=== PATIENT | male | born 1960 | race Caucasian/White ===

== ENCOUNTER 2018-06-15 14:51 | Emergency (ER) | payer BC ==
[~2018-06-15] VITALS: Ht 172.7 cm; Wt 81.6 kg
[~2018-06-15 14:51] MED LIST: AMOXICILLIN500 MG PO; ANUSOL-HC25 MG R; ANUSOL-HC25 MG RC; ASPIRIN325 MG PO; ASPIRIN81 M1 PO; ATIVAN0.5 MG PO; BREO ELLIPTA 21 EACH IH; BRILINTA90 M1 PO; CIPROFLOXACIN500 MG PO; CYCLOBENZAPRINE10 MG PO; D-1000 185 MG-11 TAB PO; FISH OIL500 M2 PO; FLONASE ALLERG9.9 ML NS; HYDROCODONE BIT1 T11 PO; KEFLEX500 MG PO; LEVAQUIN750 M1 PO; LIPITOR80 MG PO; LISINOPRIL10 M1 PO; LISINOPRIL40 MG PO; LOPRESSOR25 MG PO; MUCINEX ER600 MG PO; NAPROSYN500 MG PO; NKHM; PRAVASTATIN SOD40 MG PO; PREDNISONE10 MG PO; PREDNISONE20 MG PO; PREVACID30 M3 PO; PROVENTIL0.09 MG/A1 INH; SYMBICORT1 AE1 INH; TESSALON PERLE100 MG PO; TOBRADEX 0.1%-0.5 ML OPH; VENTOLIN H0.09 MG/AC INH; ZANTAC 7575 MG PO; ZITHROMAX TRI-500 M1 PO; ZITHROMAX Z PA250 MG PO; ZITHROMAX250 MG PO
[2018-06-15] MEDS ORDERED: MYCOLOG CREAM 115 GM T (15:03)
[2018-06-15] MEDS ORDERED: NYSTOP60 GM T (15:03)
== END 2018-06-15 15:10 | disposition home or self-care (01) ==
LOC: ED 14:51
DX: L25.8 Unspecified contact dermatitis due to other agents (principal); I11.0 Hypertensive heart disease with heart failure; I50.32 Chronic diastolic (congestive) heart failure; J44.9 Chronic obstructive pulmonary disease, unspecified; K21.9 Gastro-esophageal reflux disease without esophagitis; I25.2 Old myocardial infarction; F17.200 Nicotine dependence, unspecified, uncomplicated; Z88.6 Allergy status to analgesic agent; Z88.1 Allergy status to other antibiotic agents; Z79.899 Other long term (current) drug therapy; Z79.82 Long term (current) use of aspirin

== ENCOUNTER 2018-09-13 16:01 | Inpatient (IN) | payer BC ==
[~2018-09-13] VITALS: Ht 172.7 cm; Wt 85.4 kg
[2018-09-13 16:01] VITALS: BP 156/89
[~2018-09-13 16:01] MED LIST changes: +MYCOLOG CREAM 115 GM T; +NYSTOP60 GM T
[2018-09-13 16:28] LABS: BASO # 0.1 10*3/uL (0.0-0.1); BASO % 0.5 % (0.0-1.0); EOS # 0.2 10*3/uL (0.0-0.4); EOS % 1.2 % (1.0-4.0); HEMATOCRIT 46.3 % (42.0-52.0); HEMOGLOBIN 15.4 g/dl (14.0-18.0); LYMPH # 2.2 10*3/uL (1.3-4.4); LYMPH % 17.3 % (27.0-41.0); MEAN CELL VOLUME 95.5 fl (80.0-94.0); MEAN CORPUSCULAR HGB 31.8 pg (27.0-31.0); MEAN CORPUSCULAR HGB CONC 33.3 g/dl (33.0-37.0); MEAN PLATELET VOLUME 10.2 fl (9.6-12.3); MONO # 0.9 10*3/uL (0.1-1.0); MONO % 7.6 % (3.0-9.0); NEUT # 9.1 10*3/uL (2.3-7.9); NEUT % 73.2 % (47.0-73.0); PLATELET COUNT AUTOMATED 246 10*3/uL (130-400); RED BLOOD COUNT 4.85 10*6/uL (4.50-5.90); RED CELL DISTRI WIDTH 13.1 % (0-14.5); WHITE BLOOD COUNT 12.5 10*3/uL (4.8-10.8)
[2018-09-13 16:44] LABS: INTERNATIONAL NORM RATIO 0.9 (2.0-3.5)
[2018-09-13 16:45] LABS: ALBUMIN 3.8 gm/dl (3.1-4.5); ALKALINE PHOSPHATASE 94 U/L (45-117); BUN 14 mg/dl (7-24); CHLORIDE 104 mmol/L (98-107); CREATININE 1.05 mg/dL (0.70-1.30); LIPASE 93 U/L (73-393); POTASSIUM 4.3 mmol/L (3.5-5.1); SGOT/AST 20 IU/L (3-35); SGPT/ALT 34 U/L (12-78); SODIUM 138 mmol/L (136-145); TOTAL PROTEIN 7.9 gm/dL (6.4-8.2)
[2018-09-13] MEDS ORDERED: LISINOPRIL20 MG PO (16:48)
[2018-09-13 16:49] LABS: BILIRUBIN NEGATIVE (NEGATIVE); BLOOD NEGATIVE (NEGATIVE); CLARITY CLEAR (CLEAR); COLOR YELLOW (YELLOW); GLUCOSE NEGATIVE (NEGATIVE); KETONE NEGATIVE (NEGATIVE); LEUKO ESTERASE NEGATIVE (NEGATIVE); NITRITE NEGATIVE (NEGATIVE); PH 5.5 (5.0-9.0); UROBILINOGEN 0.2 E.U./dl (0.2-1.0)
[2018-09-13] MEDS ORDERED: OMEPRAZOLE40 MG PO (16:49)
[2018-09-13] MEDS ORDERED: LIPITOR40 MG PO (16:50)
[2018-09-13] MEDS ORDERED: CLOPIDOGREL75 MG PO (16:50)
[2018-09-13 17:08] LABS: BACTERIA 1+; FINE GRANULAR CAST 0-2
--- NOTE | 2018-09-13 17:18 | NUR ---
THE MORPHINE DID HELP WITH THE PATIENTS PAIN
[2018-09-13 18:22] VITALS: BP 166/92
--- NOTE | 2018-09-13 18:48 | NUR ---
Time: 1847 A 57 year old FEMALE admitted to 5E under services of JUDIE COOPER DO. Pt. arrived via stretcher from ER. Chief complaint: ABDOMINAL PAIN. ALETA CROOK
[2018-09-13] MEDS ORDERED: ASPIR LOW81 MG PO (19:01)
[2018-09-13] MEDS ORDERED: FISH OIL 1,0001 EAC5 PO (19:01)
[2018-09-13 19:02] VITALS: BP 155/73
--- NOTE | 2018-09-13 19:37 | NUR ---
NOTIFIED OF PATIENT'S PAST MEDICAL HISTORY INCLUDING BOWEL OBSTRUCTION WITH ILEOSTOMY & REVERSAL AT [facility]. ALSO AWARE OF CT ABD/PELVIS RESULTS. ALSO MADE AWARE OF PATIENT'S REQUEST FOR NICOTINE PATCH. PATIENT IS A PACK TO TWO PACKS PER DAY SMOKER. NEW ORDERS TO FOLLOW PER .
--- NOTE | 2018-09-13 20:20 | NUR ---
NOTIFIED OF CONSULT. NEW ORDERS RECEIVED FOR NG TUBE TO LOW/INTERMITTENT SUCTION, FLAT UPRIGHT ABDOMINAL XRAY 09/14 IN AM, AND TO OBTAIN MEDICAL RECORDS FROM [facility]. PATIENT STATES HE WAS IN [facility] ON/OFF FROM SEPTEMBER 2016 TO APRIL 2017. STATES HE HAD AN ILEOSTOMY WITH REVERSAL AND MULTIPLE HERNIA REPAIRS.
--- NOTE | 2018-09-13 21:03 | NUR ---
3 ATT[address]PTS BY MULTIPLE RNs TO PLACE NG TUBE WERE UNSUCCESSFUL. NOTIFIED. INSTRUCTED TO CALL .
--- NOTE | 2018-09-13 21:04 | NUR ---
NOTIFIED THAT NG TUBE PLACEMENT WAS UNSUCCESSFUL. STATES THAT IT IS OKAY TO LEAVE NG TUBE OUT FOR NOW. INSTRUCTED TO CALL IF PATIENT BECOMES MORE DISTENDED OR BEGINS TO DRY HEAVE. STATES HE WILL SEE PATIENT IN AM.
--- NOTE | 2018-09-13 21:30 | NUR ---
NOTIFIED OF PATIENT'S C/O PAIN IN ABD. DISCUSSED ORDERED PO MEDS AND QUESTIONED WHETHER TO GIVE THESE SINCE WANTS PATIENT TO BE NPO. WILL REVIEW CHART AND PLACE ORDERS NEEDED.
--- NOTE | 2018-09-13 22:45 | NUR ---
AND AT BEDSIDE. INSTRUCTED TO ORDER 2MG IV ATIVAN X1 DOSE AND PO LIDOCAINE VISCOUS. THIS IS TO HELP PATIENT RELAX SO THAT NG TUBE CAN BE PLACED. IV ATIVAN GIVEN SLOWLY AT THIS TIME PER ORDER. WILL MONITOR EFFECTIVENESS. CALL LIGHT LEFT IN REACH.
--- NOTE | 2018-09-13 23:09 | NUR ---
& AT BEDSIDE TO PLACE NG TUBE. NG TUBE PLACED. CXR ORDERED. SUCTION SET UP AT BEDSIDE. AWAITING VERIFICATION OF PLACEMENT.
[2018-09-14] VITALS: BP 131/91
--- NOTE | 2018-09-14 00:18 | NUR ---
CALLED. NG TUBE IN CORRECT POSITION FROM CXR IMAGE. OKAY TO USE.
--- NOTE | 2018-09-14 03:22 | NUR ---
NOTIFIED THAT SUCTION NO LONGER WORKING ON LOW/INTERMITTENT SETTING. INSTRUCTED TO CHANGE ROOMS IF SUCTION IN ROOM NOT WORKING. RN ABLE TO SET UP NEW UNIT & AFTER MULTIPLE ATTEMPTS, LOW-INTERMITTENT SUCTION SUCCESSFUL. WILL MONITOR OUTPUT.
[2018-09-14 06:23] LABS: BASO # 0.1 10*3/uL (0.0-0.1); BASO % 0.6 % (0.0-1.0); EOS # 0.1 10*3/uL (0.0-0.4); EOS % 0.7 % (1.0-4.0); HEMATOCRIT 44.2 % (42.0-52.0); HEMOGLOBIN 14.7 g/dl (14.0-18.0); LYMPH # 2.3 10*3/uL (1.3-4.4); LYMPH % 21.4 % (27.0-41.0); MEAN CELL VOLUME 95.9 fl (80.0-94.0); MEAN CORPUSCULAR HGB 31.9 pg (27.0-31.0); MEAN CORPUSCULAR HGB CONC 33.3 g/dl (33.0-37.0); MEAN PLATELET VOLUME 9.8 fl (9.6-12.3); MONO % 9.6 % (3.0-9.0); NEUT # 7.1 10*3/uL (2.3-7.9); NEUT % 67.4 % (47.0-73.0); PLATELET COUNT AUTOMATED 211 10*3/uL (130-400); RED BLOOD COUNT 4.61 10*6/uL (4.50-5.90); RED CELL DISTRI WIDTH 13.2 % (0-14.5); WHITE BLOOD COUNT 10.6 10*3/uL (4.8-10.8)
[2018-09-14 06:37] LABS: BUN 13 mg/dl (7-24); CHLORIDE 105 mmol/L (98-107); CREATININE 1.01 mg/dL (0.70-1.30); PHOSPHOROUS 3.7 mg/dL (2.5-4.9); POTASSIUM 4.1 mmol/L (3.5-5.1); SODIUM 139 mmol/L (136-145)
[2018-09-14 08:00] VITALS: BP 154/91
--- NOTE | 2018-09-14 09:02 | NUR ---
C/O PAIN TO ABD OF 12/11. IV MORPHINE GIVEN AT THIS TIME. WILL CONT TO MONITOR. CALL LIGHT IN REACH.
--- NOTE | 2018-09-14 09:59 | NUR ---
MS EFF. WILL CONT TO MONITOR. CALL LIGHT IN REACH.
[2018-09-14 12:00] VITALS: BP 167/90
--- NOTE | 2018-09-14 13:47 | NUR ---
C/O PAIN TO ABD OF 03/13. IV MORPHINE GIVEN AT THIS TIME. WILL CONT TO MONITOR. CALL LIGHT IN REACH.
--- NOTE | 2018-09-14 14:45 | NUR ---
PT STATES LESSENING OF PAIN SINCE IV MS OF 08/11. WILL CONT TO MONITOR. CALL LIGHT IN REACH.
--- NOTE | 2018-09-14 15:41 | NUR ---
GAVE DULCOLAX SUPP PER DR ROSE REQUEST AT THIS TIME.
[2018-09-14 16:00] VITALS: BP 158/90
--- NOTE | 2018-09-14 17:30 | NUR ---
PT HAD A LARGE FORMED BM AT THIS TIME. HE STATED HE DOESN'T FEEL LIKE HE'S DONE YET AND WANTS TO REMAIN UNHOOKED FROM HIS NG SUCTION AND IVF UNTIL HE'S FINISHED. FAMILY AT BEDSIDE.
--- NOTE | 2018-09-14 18:21 | NUR ---
C/O PAIN OF 3-4/10 TO ABD AND A HEADACHE. IV MS GIVEN AT THIS TIME.
[2018-09-14 20:00] VITALS: BP 160/90
--- NOTE | 2018-09-14 22:55 | NUR ---
MORPHINE GIVEN FOR C/O ABD PAIN RATED 10/10. CALL LIGHT IN REACH. NG SUCTION GOING. IVF GOING.
--- NOTE | 2018-09-14 23:56 | NUR ---
SLEEPING. MORPHINE SEEMS TO BE EFFECTIVE. CALL LIGHT IN REACH.
[2018-09-15] VITALS: BP 161/84
--- NOTE | 2018-09-15 00:10 | NUR ---
NOTIFIED OF DARK URINE WITH HINT OF RED/BLOOD. SAID TO MONITOR. NO NEW ORDERS GIVEN.
--- NOTE | 2018-09-15 01:12 | NUR ---
24HR CHART CHECK COMPLETED.
--- NOTE | 2018-09-15 01:26 | NUR ---
PT URINATED AGAIN, THIS TIME URINE IS MORE BRIGHT RED IN COLOR. NOTIFIED . ORDERED TO HOLD LOVENOX IN AM. SEE MAR.
--- NOTE | 2018-09-15 03:28 | NUR ---
MORPHINE GIVEN FOR C/I ABD PAIN RATED 10/10. CALL LIGHT IN REACH. WILL MONITOR.
--- NOTE | 2018-09-15 05:31 | NUR ---
SLEEPING. CALL LIGHT IN REACH. MORPHINE SEEMS TO BE EFFECTIVE FOR COMPLAINTS.
[2018-09-15 05:47] VITALS: BP 99/58
[2018-09-15 06:13] LABS: BASO # 0.1 10*3/uL (0.0-0.1); BASO % 0.7 % (0.0-1.0); EOS # 0.2 10*3/uL (0.0-0.4); EOS % 2.3 % (1.0-4.0); HEMATOCRIT 41.7 % (42.0-52.0); HEMOGLOBIN 13.7 g/dl (14.0-18.0); LYMPH # 2.2 10*3/uL (1.3-4.4); MEAN CELL VOLUME 96.5 fl (80.0-94.0); MEAN CORPUSCULAR HGB 31.7 pg (27.0-31.0); MEAN CORPUSCULAR HGB CONC 32.9 g/dl (33.0-37.0); MONO # 0.9 10*3/uL (0.1-1.0); MONO % 9.9 % (3.0-9.0); NEUT # 5.5 10*3/uL (2.3-7.9); NEUT % 61.9 % (47.0-73.0); PLATELET COUNT AUTOMATED 196 10*3/uL (130-400); RED BLOOD COUNT 4.32 10*6/uL (4.50-5.90); RED CELL DISTRI WIDTH 13.1 % (0-14.5); WHITE BLOOD COUNT 8.8 10*3/uL (4.8-10.8)
[2018-09-15 06:34] LABS: BUN 15 mg/dl (7-24); CHLORIDE 109 mmol/L (98-107); CREATININE 0.95 mg/dL (0.70-1.30); POTASSIUM 3.9 mmol/L (3.5-5.1); SODIUM 142 mmol/L (136-145)
[2018-09-15 08:00] VITALS: BP 154/70
--- NOTE | 2018-09-15 08:03 | NUR ---
C/O PAIN OF 12/11 TO ABD BUT HE STATES HE WILL HOLD OFF FOR HIS PAIN MEDS.
--- NOTE | 2018-09-15 10:13 | NUR ---
SPOKE TO WENDY FRANCOIS REGARDING DISCOLORED URINE. SHE GAVE ME A NEW ORDER TO CHECK UA REFLEX TO UC
--- NOTE | 2018-09-15 10:55 | NUR ---
PT C/O HEADACHE OF 12/11. IV MORPHINE GIVEN AT THIS TIME DUE TO PATIENT CONTINUING TO BE NPO.
[2018-09-15 11:09] LABS: BILIRUBIN 1+ (NEGATIVE); BLOOD NEGATIVE (NEGATIVE); CLARITY SL CLOUDY (CLEAR); COLOR YELLOW (YELLOW); GLUCOSE NEGATIVE (NEGATIVE); KETONE 3+ (NEGATIVE); LEUKO ESTERASE TRACE (NEGATIVE); NITRITE NEGATIVE (NEGATIVE); PH 6.5 (5.0-9.0); SPECIFIC GRAVITY 1.015 (1.005-1.030)
[2018-09-15 11:23] LABS: BACTERIA TRACE
--- NOTE | 2018-09-15 11:55 | NUR ---
MORPHINE EFF FOR C/O HEADACHE. WILL CONT TO MONITOR. CALL LIGHT IN REACH.
[2018-09-15 12:00] VITALS: BP 164/72
--- NOTE | 2018-09-15 14:00 | NUR ---
PER DR ROSE REMOVE NG TUBE AND GIVE SIPS OF WATER AND ICE CHIPS. HE STATED HE SEEN THE RESULTS OF HER X-RAYS FROM THIS AM AND THAT HE WILL CALL LATER TO CHECK ON HIM.
--- NOTE | 2018-09-15 14:03 | NUR ---
REMOVED NG TUBE. PT TOLERATED WELL
--- NOTE | 2018-09-15 15:40 | NUR ---
PT REQUESTED DULCOLAX SUPP AND IT WAS GIVEN AT THIS TIME. WILL CONT TO MONITOR. CALL LIGHT IN REACH.
[2018-09-15 16:00] VITALS: BP 140/96
--- NOTE | 2018-09-15 16:41 | NUR ---
SUPPOSITORY EFF FOR VERY LARGE HARD BM PER PT. WILL CONT TO MONITOR.
--- NOTE | 2018-09-15 16:59 | NUR ---
PER DR ROSE PT MAY HAVE CLEAR LIQUID DIET
[2018-09-15 20:00] VITALS: BP 176/84
--- NOTE | 2018-09-15 21:18 | NUR ---
PATIENT REQUESTING MEDICATION FOR CONSTIPATION. DULCOLAX ADMINISTERED PRESCRIBED. WILL MONITOR FOR EFFECTIVENESS.
[2018-09-16] VITALS: BP 154/81
--- NOTE | 2018-09-16 01:03 | NUR ---
24 HR chart check completed.
[2018-09-16 06:57] LABS: ALBUMIN 3.1 gm/dl (3.1-4.5); ALKALINE PHOSPHATASE 82 U/L (45-117); BUN 11 mg/dl (7-24); CHLORIDE 105 mmol/L (98-107); CREATININE 0.87 mg/dL (0.70-1.30); PHOSPHOROUS 2.6 mg/dL (2.5-4.9); POTASSIUM 4.2 mmol/L (3.5-5.1); SGOT/AST 19 IU/L (3-35); SGPT/ALT 23 U/L (12-78); SODIUM 137 mmol/L (136-145); TOTAL PROTEIN 6.8 gm/dL (6.4-8.2)
[2018-09-16 08:00] VITALS: BP 154/73
[2018-09-16 12:00] VITALS: BP 142/78
--- NOTE | 2018-09-16 12:48 | NUR ---
Returns Clerk in to talk to patient. Patient states lives at HOME with . There are FEW steps in the home. Physician: [facility] Pharmacy: [facility] Home health services: NONE Patient's level of ADLs: INDEPENDENT Patient has working utilities: YES DME: [facility] Follow-up physician's appointment after d/c: WILL BE MADE BY HOSPITALIST NURSE DIRECTOR ON DISCHARGE Does patient want to access PORTAL?: NO Discharge plan PT STATES HE LIVES AT HOME WITH AND IS INDEPENDENT IN HIS CARE DENIES ANY NEEDS AT HOME ON DISCHARGE. WILL CONTINUE TO FOLLOW. WILL HAVE A RIDE HOME PER PT.. SANTANA DOMINGUEZ
[2018-09-16] MEDS ORDERED: CLEOCIN T60 ML T (14:55)
--- NOTE | 2018-09-16 15:35 | NUR ---
Discharge instructions reviewed with patient/family. Patient receptive and verbalizes understanding. Follow-up care arranged. Written instructions given to patient/family. SAUNDRA PA
== END 2018-09-16 15:35 | disposition home or self-care (01) | DRG 389 ==
LOC: ED 16:01 → EDHOLD 18:06 → 5E 18:06
PROVIDERS: Emergency Medicine; Registered Nurse; Student in an Organized Health Care Education/Training Program; ADMIT Internal Medicine
PROC: 0D9670Z Drainage of Stomach with Drainage Device, Via Natural or Artificial Opening (ICD-10-PCS; principal; 2018-09-13)
DX: K56.600 Partial intestinal obstruction, unspecified as to cause (principal); I50.32 Chronic diastolic (congestive) heart failure; K52.9 Noninfective gastroenteritis and colitis, unspecified; I11.0 Hypertensive heart disease with heart failure; J44.9 Chronic obstructive pulmonary disease, unspecified; F17.210 Nicotine dependence, cigarettes, uncomplicated; L73.2 Hidradenitis suppurativa; K21.9 Gastro-esophageal reflux disease without esophagitis; E78.5 Hyperlipidemia, unspecified; L73.9 Follicular disorder, unspecified; Z71.6 Tobacco abuse counseling; Z90.49 Acquired absence of other specified parts of digestive tract; Z88.1 Allergy status to other antibiotic agents; Z88.8 Allergy status to other drugs, medicaments and biological substances; I25.2 Old myocardial infarction; Z87.01 Personal history of pneumonia (recurrent); Z95.5 Presence of coronary angioplasty implant and graft; Z82.49 Family history of ischemic heart disease and other diseases of the circulatory system; Z81.8 Family history of other mental and behavioral disorders; Z80.9 Family history of malignant neoplasm, unspecified; Z79.82 Long term (current) use of aspirin; Z79.899 Other long term (current) drug therapy

== ENCOUNTER 2018-12-31 16:46 | Emergency (ER) | payer BC ==
[~2018-12-31] VITALS: Ht 172.7 cm; Wt 81.6 kg
--- NOTE | ~2018-12-31 | EKG ---
[place], [place] ELECTROCARDIOGRAM REPORT NAME: ALFREDO HAM UNIT #: [id number] ROOM: DOCTOR: EPIPHANY DRAFT REPORT BIRTHDATE: [birth year] [facility] Test Date: 2018-12-31 Test Time: 17:25:11 Pat Name: ALFREDO HAM Department: Room: Gender: [employer]: Lyla Cho : 1960 Requested By: SOLA SPRAGUE Order Number: [id number] Reading MD: Sami Galvan MD Measurements Intervals [place] Rate: 60 P: 54 NE: 150 QRS: 21 QRSD: 91 T: 13 QT: 382 QTc: 382 Interpretive Statements Sinus rhythm Probable left atrial enlargement No previous ECG available for comparison Electronically Signed On 01-01-2019 14:09:13 PDT by Sami Galvan MD CM:EKGRPT:ELECTROCARDIOGRAM REPORT [id number] SOLA SPRAGUE EPIPHANY DRAFT REPORT SOLA SPRAGUE
[~2018-12-31 16:46] MED LIST changes: +ASPIR LOW81 MG PO; +CLEOCIN T60 ML T; +CLOPIDOGREL75 MG PO; +FISH OIL 1,0001 EAC5 PO; +LIPITOR40 MG PO; +LISINOPRIL20 MG PO; +OMEPRAZOLE40 MG PO
[2018-12-31 17:27] LABS: BASO # 0.1 10*3/uL (0.0-0.1); BASO % 0.8 % (0.0-1.0); EOS # 0.2 10*3/uL (0.0-0.4); EOS % 2.5 % (1.0-4.0); HEMATOCRIT 41.7 % (42.0-52.0); LYMPH # 3.4 10*3/uL (1.3-4.4); LYMPH % 35.3 % (27.0-41.0); MEAN CORPUSCULAR HGB 32.6 pg (27.0-31.0); MEAN CORPUSCULAR HGB CONC 33.6 g/dl (33.0-37.0); MEAN PLATELET VOLUME 10.2 fl (9.6-12.3); MONO % 10.4 % (3.0-9.0); NEUT # 4.8 10*3/uL (2.3-7.9); NEUT % 50.7 % (47.0-73.0); PLATELET COUNT AUTOMATED 208 10*3/uL (130-400); WHITE BLOOD COUNT 9.6 10*3/uL (4.8-10.8)
[2018-12-31 17:45] LABS: ALBUMIN 3.4 gm/dl (3.1-4.5); ALKALINE PHOSPHATASE 75 U/L (45-117); BUN 12 mg/dl (7-24); CHLORIDE 107 mmol/L (98-107); CREATININE 1.52 mg/dL (0.70-1.30); POTASSIUM 3.7 mmol/L (3.5-5.1); SGOT/AST 14 IU/L (3-35); SGPT/ALT 25 U/L (12-78); SODIUM 138 mmol/L (136-145); TOTAL PROTEIN 6.7 gm/dL (6.4-8.2)
[2018-12-31 18:04] LABS: TROPONIN I < 0.015 ng/ml (<0.045)
[2018-12-31] MEDS ORDERED: VIBRAMYCIN100 MG PO (18:31)
== END 2018-12-31 19:18 | disposition home or self-care (01) ==
LOC: ED 16:46
PROVIDERS: Nurse Practitioner Family
DX: R53.83 Other fatigue (principal); R53.1 Weakness; R52 Pain, unspecified; I25.2 Old myocardial infarction; F17.200 Nicotine dependence, unspecified, uncomplicated; Z88.1 Allergy status to other antibiotic agents; Z88.6 Allergy status to analgesic agent; Z79.2 Long term (current) use of antibiotics; Z79.82 Long term (current) use of aspirin; Z79.899 Other long term (current) drug therapy

== ENCOUNTER 2019-06-06 19:03 | Emergency (ER) | payer BC ==
[~2019-06-06] VITALS: Ht 170.1 cm; Wt 90.3 kg
[~2019-06-06 19:03] MED LIST changes: +VIBRAMYCIN100 MG PO
== END 2019-06-06 20:55 | disposition left against medical advice (07) ==
LOC: ED 19:03
DX: R51 Headache (principal); R05 Cough; J02.9 Acute pharyngitis, unspecified; Z53.21 Procedure and treatment not carried out due to patient leaving prior to being seen by health care provider

== ENCOUNTER → 2020-05-26 | Outpatient (CLI) | payer BC | END | disposition home or self-care (01) | LOC: COVID19 14:57 | PROVIDERS: ATTEND Internal Medicine | DX: Z20.828 Contact with and (suspected) exposure to other viral communicable diseases (principal) ==

== ENCOUNTER 2020-07-28 14:24 | Observation (INO) | payer BC ==
[2020-07-28] VITALS (9 sets, daily range): BP systolic 105–154; BP diastolic 49–92
[~2020-07-28] VITALS: Ht 170.2 cm; Wt 87.5 kg
[2020-07-28 14:36] LABS: BASO # 0.1 10*3/uL (0.0-0.1); BASO % 0.8 % (0.0-1.0); EOS # 0.2 10*3/uL (0.0-0.4); EOS % 2.2 % (1.0-4.0); LYMPH # 2.8 10*3/uL (1.3-4.4); LYMPH % 26.8 % (27.0-41.0); MEAN CELL VOLUME 96.6 fl (80.0-94.0); MEAN CORPUSCULAR HGB 32.8 pg (27.0-31.0); MEAN PLATELET VOLUME 9.8 fl (9.6-12.3); MONO % 9.6 % (3.0-9.0); NEUT # 6.2 10*3/uL (2.3-7.9); NEUT % 60.2 % (47.0-73.0); PLATELET COUNT AUTOMATED 256 10*3/uL (130-400); RED BLOOD COUNT 4.97 10*6/uL (4.50-5.90); RED CELL DISTRI WIDTH 12.8 % (0-14.5); WHITE BLOOD COUNT 10.3 10*3/uL (4.8-10.8)
[2020-07-28 14:47] LABS: ACT PARTIAL THROMBO TIME 27.1 SECONDS (20.0-32.1)
[2020-07-28 15:00] LABS: ALBUMIN 3.7 gm/dl (3.1-4.5); ALKALINE PHOSPHATASE 88 U/L (45-117); BUN 14 mg/dl (7-24); CHLORIDE 108 mmol/L (98-107); CREATININE 1.29 mg/dL (0.70-1.30); POTASSIUM 3.8 mmol/L (3.5-5.1); SGOT/AST 19 IU/L (3-35); SGPT/ALT 32 U/L (12-78); SODIUM 138 mmol/L (136-145); TOTAL PROTEIN 7.7 gm/dL (6.4-8.2)
[2020-07-28 15:01] LABS: TROPONIN I < 0.015 ng/ml (<0.045)
[2020-07-29] VITALS: BP 149/84
[2020-07-29 06:43] LABS: BASO # 0.1 10*3/uL (0.0-0.1); BASO % 0.8 % (0.0-1.0); EOS # 0.3 10*3/uL (0.0-0.4); EOS % 3.8 % (1.0-4.0); HEMATOCRIT 45.8 % (42.0-52.0); LYMPH # 3.1 10*3/uL (1.3-4.4); MEAN CELL VOLUME 97.7 fl (80.0-94.0); MEAN CORPUSCULAR HGB CONC 33.8 g/dl (33.0-37.0); MEAN PLATELET VOLUME 10.3 fl (9.6-12.3); MONO # 0.9 10*3/uL (0.1-1.0); MONO % 10.6 % (3.0-9.0); NEUT # 4.2 10*3/uL (2.3-7.9); NEUT % 48.3 % (47.0-73.0); PLATELET COUNT AUTOMATED 248 10*3/uL (130-400); RED BLOOD COUNT 4.69 10*6/uL (4.50-5.90); RED CELL DISTRI WIDTH 13.2 % (0-14.5); WHITE BLOOD COUNT 8.6 10*3/uL (4.8-10.8)
[2020-07-29 07:11] LABS: BUN 15 mg/dl (7-24); CHLORIDE 108 mmol/L (98-107); CHOLESTEROL 152 mg/dL (<200); CREATININE 1.02 mg/dL (0.70-1.30); HDL CHOLESTEROL 34 mg/dl (40-60); LDL CHOLESTEROL 101 mg/dL (9-159); POTASSIUM 4.3 mmol/L (3.5-5.1); SODIUM 139 mmol/L (136-145); TRIGLYCERIDES 85 mg/dl (<150); VLDL CHOLESTEROL 17 mg/dL (6-40)
[2020-07-29 08:00] VITALS: BP 114/76
[2020-07-29 12:00] VITALS: BP 140/81
== END 2020-07-29 13:06 | disposition short-term general hospital (02) ==
LOC: ED 14:24 → EDHOLD 16:11 → 5E 21:48
PROVIDERS: Emergency Medicine; Internal Medicine; ADMIT Internal Medicine; ATTEND Internal Medicine
DX: R07.89 Other chest pain (principal); I21.4 Non-ST elevation (NSTEMI) myocardial infarction; E87.8 Other disorders of electrolyte and fluid balance, not elsewhere classified; D75.89 Other specified diseases of blood and blood-forming organs; K21.9 Gastro-esophageal reflux disease without esophagitis; J44.9 Chronic obstructive pulmonary disease, unspecified; I11.0 Hypertensive heart disease with heart failure; I50.32 Chronic diastolic (congestive) heart failure; E78.5 Hyperlipidemia, unspecified; E55.9 Vitamin D deficiency, unspecified; R00.1 Bradycardia, unspecified; I25.10 Atherosclerotic heart disease of native coronary artery without angina pectoris; R77.8 Other specified abnormalities of plasma proteins; I25.2 Old myocardial infarction; F17.210 Nicotine dependence, cigarettes, uncomplicated; Z71.6 Tobacco abuse counseling

== ENCOUNTER → 2021-02-22 | Outpatient (CLI) | payer BC | END | disposition home or self-care (01) | LOC: COVID19 16:15 | PROVIDERS: ATTEND Family Medicine | DX: Z11.52 Encounter for screening for COVID-19 (principal) ==

== ENCOUNTER → 2021-02-28 | Outpatient (CLI) | payer BC | END | disposition home or self-care (01) | LOC: COVID19 15:43 | PROVIDERS: ATTEND Internal Medicine | DX: Z11.52 Encounter for screening for COVID-19 (principal) ==

== ENCOUNTER → 2021-07-05 | Outpatient (CLI) | payer BC | END | disposition home or self-care (01) | LOC: COVID19 16:44 | PROVIDERS: ATTEND Family Medicine | DX: Z20.822 Contact with and (suspected) exposure to COVID-19 (principal) ==

== ENCOUNTER → 2021-07-12 | Outpatient (CLI) | payer BC | END | disposition home or self-care (01) | LOC: RAD 16:56 | DX: R06.02 Shortness of breath (principal) ==

== ENCOUNTER → 2023-12-31 | Outpatient (CLI) | payer BC ==
[2023-12-31 15:20] LABS: BASO # 0.1 10*3/uL (0.0-0.1); BASO % 0.6 % (0.0-1.0); EOS # 0.1 10*3/uL (0.0-0.4); EOS % 1.4 % (1.0-4.0); HEMATOCRIT 43.8 % (42.0-52.0); LYMPH # 2.6 10*3/uL (1.3-4.4); LYMPH % 30.6 % (27.0-41.0); MEAN CELL VOLUME 90.3 fl (80.0-94.0); MEAN CORPUSCULAR HGB 29.5 pg (27.0-31.0); MEAN CORPUSCULAR HGB CONC 32.6 g/dl (33.0-37.0); MEAN PLATELET VOLUME 10.2 fl (9.6-12.3); MONO % 11.7 % (3.0-9.0); NEUT # 4.8 10*3/uL (2.3-7.9); NEUT % 55.4 % (47.0-73.0); PLATELET COUNT AUTOMATED 226 10*3/uL (130-400); RED BLOOD COUNT 4.85 10*6/uL (4.50-5.90); RED CELL DISTRI WIDTH 13.3 % (0-14.5); WHITE BLOOD COUNT 8.6 10*3/uL (4.8-10.8)
== END | disposition home or self-care (01) ==
LOC: LAB 15:05
PROVIDERS: ATTEND Internal Medicine
DX: M47.812 Spondylosis without myelopathy or radiculopathy, cervical region (principal); R51.9 Headache, unspecified; M54.50 Low back pain, unspecified

== ENCOUNTER 2024-04-02 10:16 | Emergency (ER) | payer BC ==
[~2024-04-02] VITALS: Wt 94.3 kg
[2024-04-02] MEDS ORDERED: ZETIA10 MG PO (10:31)
[2024-04-02] MEDS ORDERED: LORAZEPAM0.5 M1 PO (10:31)
[2024-04-02] MEDS ORDERED: ROSUVASTATIN CA40 MG PO (10:32)
[2024-04-02] MEDS ORDERED: VENLAFAXINE37.5 M1 PO (10:33)
[2024-04-02] MEDS ORDERED: MEDROL DOSEPAK4 MG PO (12:30)
== END 2024-04-02 12:39 | disposition home or self-care (01) ==
LOC: ED 10:16
DX: S20.211A Contusion of right front wall of thorax, initial encounter (principal); F17.200 Nicotine dependence, unspecified, uncomplicated; Z88.1 Allergy status to other antibiotic agents; Z88.8 Allergy status to other drugs, medicaments and biological substances; Z79.899 Other long term (current) drug therapy; Z79.82 Long term (current) use of aspirin; Z98.890 Other specified postprocedural states; Z95.5 Presence of coronary angioplasty implant and graft; X50.1XXA Overexertion from prolonged static or awkward postures, initial encounter; Y93.89 Activity, other specified; Y92.89 Other specified places as the place of occurrence of the external cause; Y99.8 Other external cause status